=== PATIENT | male | born 1995 | race African-American/Black ===

== ENCOUNTER 2020-06-28 13:25 | Emergency (ER) | payer BC, SELFPAY ==
--- NOTE | 2020-06-28 13:30 | ED.EAR ---
HPI - Ear Problem General Chief complaint: Ear Stated complaint: left ear pressure Time Seen by Provider: 06/28/20 13:30 Source: patient and RN notes reviewed History of Present Illness HPI Narrative: Patient is a 25-year-old male who presents the urgent care with complaints of left ear pressure. Patient states that it is been ongoing for approximately a week and a half and he is use Q-tips in the ears. Patient denies of any fever, nausea, vomiting. Denies any other upper respiratory symptoms. Denies any use of [id number] medication for pain. No other acute complaints. No acute distress noted. Patient read the plan of care. Related Data Allergies Allergy/AdvReac Type Severity Reaction Status Date / Time No Known Allergies Allergy Verified 06/28/20 13:47 Review of Systems Review of Systems: Narrative: CONSTITUTIONAL: Denies fever, chills, or sweats. EYES: Denies visual changes, redness, or discharge. ENT: Reports of left ear pressure CARDIOVASCULAR: Denies chest pain, palpitations, or edema. RESPIRATORY: Denies cough or dyspnea. GASTROINTESTINAL: Denies abdominal pain, nausea, vomiting, or diarrhea. GENITOURINARY: Denies dysuria or hematuria. SKIN: Denies rash or itching. MUSCULOSKELETAL: Denies back pain, joint pain, or myalgia. NEUROLOGIC: Denies headache, numbness, or weakness. All other systems reviewed are negative, except as documented in HPI. PMFSH Comments At the time of my signature, I reviewed and agree with the nursing past medical, surgical, social, and family history. There is no relevant family history pertinent to the patient complaint. Exam Narrative: Exam Narrative: GENERAL: This is a well-nourished, well-developed patient, in no apparent distress. HEAD: normocephalic, atraumatic. EYES: PERRL. Sclera clear/white. Vision is grossly intact. EARS: External ears normal, auditory canals clear and without drainage, unable to visualize left TM due to cerumen impaction, right TM normal without perforation. Hearing grossly intact. NOSE: External nose normal with no obvious nasal discharge, nares without redness, no rhinorrhea. THROAT: Mucous membranes moist NECK: Neck supple SKIN: warm, intact with no suspicious lesions or rash, good texture and turgor. NEURO: awake, alert, and oriented to person, place and time. There were no obvious focal neurologic abnormalities. EXTREMITIES: No clubbing, cyanosis, or edema. Course Vital Signs Vital signs: Vital Signs Temperature 97.4 F L 06/28/20 13:34 Pulse Rate 94 06/28/20 13:34 Respiratory Rate 16 06/28/20 13:34 Blood Pressure 154/91 H 06/28/20 13:34 Pulse Oximetry 95 06/28/20 13:34 Temperature 97.4 F L 06/28/20 13:34 Pulse Rate 94 06/28/20 13:34 Respiratory Rate 16 06/28/20 13:34 Blood Pressure 154/91 H 06/28/20 13:34 Pulse Oximetry 95 06/28/20 13:34 Reviewed-patient is informed that they may have pre-hypertension or hypertension based on a blood pressure reading in the department. I recommend the patient call the primary care provider listed on their discharge instructions or a physician of their choice this week to arrange follow-up for further evaluation of possible pre-hypertension or hypertension. Procedures Ear Wax Removal Left Ear: Cerumenolytic Used: other (50-50 peroxide and warm water) Results: Re-examined: cerumen removed completely TM Examination: TM(s) intact, normal appearance Patient Tolerated Procedure: well Complications: no problems Technique: ear canal irrigated Additional Comments: Left ear canal irrigated with 50-50 warm water and peroxide. Patient tolerated well. Mild erythema noted to auditory canal. TM intact and within normal limits. Procedure successful. Medical Decision Making MDM Narrative Medical decision making narrative: Advised the patient to use warm compress to the outside of the ear as needed for comfort. Use prescription eardrops to the left ear fo
[2020-06-28 13:34] VITALS: BP 154/91; PULSE 94; RESP 16; TEMP 36.3; O2SAT 95
== END 2020-06-28 13:49 | disposition home or self-care (01) ==
PROVIDERS: Emergency Provider Nurse Practitioner Family
DX: H61.22 Impacted cerumen, left ear (principal)
CPT/HCPCS: 69209; 99213; G0463